=== PATIENT | female | born 1975 | race Caucasian/White ===

== ENCOUNTER 2016-08-28 14:51 | Emergency (ER) | payer OTHER ==
[~2016-08-28 14:51] MED LIST: /ESOM40CA OR; ADVAIR INH; ALBUTEROL LIQ INH; ASPI81TA83 OR; BABY81CH OR; ESTR625TA OR; GEMF600T OR; KLON1TAB OR; LOPI600T OR; NAPR500T OR; PAXI20TA OR; PAXI40TA OR; SING10TA31 OR; TRAZ100T OR; TRAZ50TA OR; VENTAER IN; ZOCO40TA OR; ZONISAMIDE PO
--- NOTE | 2016-08-28 17:05 | EDDOCDS ---
Nurse's Notes [facility] Name: Coleen Hirsch Age: 40 yrs Sex: Female : 1975 Arrival Date: 08/28/2016 Time: 14:51 Bed I6 / 28 Private MD: NO PRIMARY PHYSICIAN, . Diagnosis: Pain in left foot Presentation: 08/28 14:54 Presenting complaint: Patient states: Left foot injury a year ago, worse over the past mlb1 few days. Adult Sepsis Screening: The patient does not have new or worsening altered mentation. Patient's respiratory rate is less than 22. Systolic blood pressure is greater than 100. Patient has a qSOFA score of 0- Negative Sepsis Screen. Suicide/Homicide risk assessment- the patient denies having any suicidal and/or homicidal ideations and does not present with any other emotional, behavioral or mental health complaints. Status: Patient is not a home restoration service supervisor or dependent. Transition of care: patient was not received from another setting of care. 14:54 Acuity: ROLANDO Level 4 mlb1 14:54 Method Of Arrival: Walkin/Carried/Asstd mlb1 Triage Assessment: 14:57 General: Appears in no apparent distress, Behavior is appropriate for age, cooperative. mlb1 Pain: Location: left foot Pain currently is 8 out of 10 on a pain scale. HIV screening NA for this visit Offered previously. 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 albuterol sulfate 90 mcg/actuation Inhl HFAA 1 puff every 4 hours as needed 2. aspirin 81 mg Oral chew 1 tab once daily 3. Effexor 75 mg Oral tab 1 tab daily 4. loratadine 10 mg Oral tab 1 tab once daily 5. omeprazole 40 mg Oral cpDR 1 cap once daily 6. simvastatin 40 mg Oral tab 1 tab nightly 7. zonisamide 100 mg oral cap 1 cap nightly 8. Advair HFA 230-21 mcg/actuation inhalation HFAA 2 puffs 2 times per day 9. Tylenol 325 mg Oral tab 2 tabs every 4 hours as needed (Last dose: 08/27/2016) - PMHx: Asthma; Depression; GERD; Hypercholesterolemia; Seasonal Allergies; Sleep Apnea w/ CPAP; - PSHx: carpal tunnel bilatral; Tubal ligation; Hysterectomy; Cholecystectomy; - Social history: Smoking status: Patient uses tobacco products, light tobacco smoker. No barriers to communication noted, The patient speaks fluent Kazakh, Speaks appropriately for age. - Family history: Not pertinent. - : The pt / caregiver states he / she is not on anticoagulants. Home medication list is obtained from the patient. - Exposure Risk Screening:: None identified. Screenin:40 Screening information is obtained from the patient. Fall risk: At risk due to prior jmb history of falls. Assistance ADL's: requires no assistance with activities of daily living. Abuse/DV Screen: The patient / caregiver reports he/she is: not in a situation that causes fear, pain or injury. Nutritional screening: No deficits noted. home support is adequate. 17:03 Advance Directives: Currently, there is no health care proxy. There is no active DNR jmb order. There is no living will. There is no Power of Vulcan Crewmember. Assessment: 15:40 General: Appears in no apparent distress, Behavior is appropriate for age, cooperative. jmb Pain: Location: left foot Pain currently is 9 out of 10 on a pain scale. Neurological: Level of Consciousness is awake, alert, obeys commands, Oriented to person, place, time, Director Of Housing are equal bilaterally Speech is normal, Facial symmetry appears normal, Facial symmetry: tongue is midline. Cardiovascular: Capillary refill < 3 seconds Heart tones S1 S2 present Pulses are all present. Rhythm is regular. Respiratory: Airway is patent Respiratory effort is even, unlabored, Respiratory pattern is regular, symmetrical, Breath sounds are diminished bilaterally. GI: Abdomen is obese, Bowel sounds present X 4 quads. Abd is soft and non tender X 4 quads. Derm: Skin is pink, warm & dry. Musculoskeletal: Range of motion intact in all extremities. 16:22 General: Appears in no apparent distress, Behavior is appropriate for age, cooperative. jmb Neurological: Level of Consciousness is awake, alert, obeys commands, Oriented to person, place, time, Director Of Housing are. Respiratory: Airway is patent Respiratory effort is even, unlabored, Respiratory pattern is regular, symmetrical. 17:03 General: Patient instructed on discharge instructions. Patient asked if there were any b questions regarding discharge, patient stated no. Patient signed discharge instructions. Patient discharged in stable condition. . Vital Signs: 14:53 BP 146 / 76; Pulse 114; Resp 18; Temp 97.6(O); Pulse Ox 97% on R/A; Weight 135.17 kg dem1 (R); Height 5 ft. 3 in. (160.02 cm); Pain 8/10; 16:51 BP 137 / 75; Pulse 91; Resp 20; Temp 98.1(TE); Pulse Ox 97% on R/A; Pain 9/10; jml1 14:53 Body Mass Index 52.79 (135.17 kg, 160.02 cm) [facility] Vitals: 14:53 Log In Time: August 28, 2016 at 14:50. [facility] ED Course: 14:52 Patient visited by Enrique Lanier. dem1 14:52 Patient moved to Waiting [facility] 14:53 NO PRIMARY PHYSICIAN, . is Private Physician. dem1 14:53 Patient moved to Pre RCE dem1 14:54 Patient visited by Chema Corbett RN. mlb1 14:55 Triage Initiated mlb1 14:57 Patient visited by Chema Corbett RN. mlb1 14:57 Patient moved to Triage 2 mlb1 15:09 Maximilian Felix PA-C is PHCP. ar2 15:10 Dorys Burgos MD is Attending Physician. ar2 15:10 Patient visited by Maximilian Felix PA-C. ar2 15:16 Patient moved to I6 ck1 15:40 The patient / caregiver is instructed regarding the plan of care and ED course. jmb 15:41 Patient visited by Leonardo Diaz RN. jmb 16:15 [facility] Payment Agreement was scanned into [employer] and attached to record. ks16 16:23 Patient visited by Leonardo Diaz RN. jmb 16:32 Akshat Zabala DPM is Referral Physician. ar2 16:52 Patient visited by Ty Hernandez. jml1 17:03 No IV's were initiated during this patient's visit. No procedures done that require jmb assistance. Order Results: There are currently no results for this order. Outcome: 16:32 Discharge ordered by Provider. ar2 17:03 Discharge Assessment: Patient awake, alert and oriented x 3. No cognitive and/or jmb functional deficits noted. Patient verbalized understanding of disposition instructions. Patient awake and alert. obeys commands, Oriented to person, place and time. Patient verbalized understanding of disposition instructions. Patient has no functional deficits. patient administered narcotics - no. The following High Risk Discharge criteria are identified: None. Discharged to home ambulatory. Condition: stable Condition: improved. Discharge instructions given to patient, Instructed on discharge instructions, follow up and referral plans. medication usage, Demonstrated understanding of instructions, medications, Pt was receptive of discharge instructions/ teaching. Prescriptions given X 1. No special radiology studies were completed. Property sent home with patient. 17:04 Patient left the ED. xander Signatures: Chema Corbett RN RN mlb1 Concepcion MascorroRN RN ck1 Maximilian Felix, PAKattyC PA-C mandy2 Ty Hernandezl1 Enrique Lanier Joshua,[place] RN luis enriqueb Elizabeth Puri, Reg Reg ks16 ELIZABET
--- NOTE | 2016-08-28 17:05 | EDDOCDS ---
Physician Documentation [facility] Name: Coleen Hirsch Age: 40 yrs Sex: Female : 1975 Arrival Date: 08/28/2016 Time: 14:51 Bed I6 / 28 Private MD: NO PRIMARY PHYSICIAN, . Disposition: 08/28/16 16:32 Discharged to Home/Self Care. Impression: Pain in left foot. - Condition is Stable. - Discharge Instructions: Heel Spur, Musculoskeletal Pain. - Prescriptions for Tramadol 50 mg Oral Tablet - take 1 tablet by ORAL route 4 times per day As needed MDD: 4 tabs; 20 tablet. - Medication Reconciliation, Local Pharmacy Hours form. - Follow up: Akshat Zabala DPM; When: Call to arrange an appointment; Reason: Further diagnostic work-up, Recheck today's complaints. - Problem is new. - Symptoms are unchanged. Historical: - Allergies: Codeine Sulfate (Upset stomach); NSAIDS (stomach problems); - Home Meds: 1. albuterol sulfate 90 mcg/actuation Inhl HFAA 1 puff every 4 hours as needed 2. aspirin 81 mg Oral chew 1 tab once daily 3. Effexor 75 mg Oral tab 1 tab daily 4. loratadine 10 mg Oral tab 1 tab once daily 5. omeprazole 40 mg Oral cpDR 1 cap once daily 6. simvastatin 40 mg Oral tab 1 tab nightly 7. zonisamide 100 mg oral cap 1 cap nightly 8. Advair HFA 230-21 mcg/actuation inhalation HFAA 2 puffs 2 times per day 9. Tylenol 325 mg Oral tab 2 tabs every 4 hours as needed (Last dose: 08/27/2016) - PMHx: Asthma; Depression; GERD; Hypercholesterolemia; Seasonal Allergies; Sleep Apnea w/ CPAP; - PSHx: carpal tunnel bilatral; Tubal ligation; Hysterectomy; Cholecystectomy; - Social history: Smoking status: Patient uses tobacco products, light tobacco smoker. No barriers to communication noted, The patient speaks fluent Mongolian, Speaks appropriately for age. - Family history: Not pertinent. - : The pt / caregiver states he / she is not on anticoagulants. Home medication list is obtained from the patient. - Exposure Risk Screening:: None identified. 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 3 in. (160.02 cm); Pain 8/10; 16:51 BP 137 / 75; Pulse 91; Resp 20; Temp 98.1(TE); Pulse Ox 97% on R/A; Pain 9/10; jml1 14:53 Body Mass Index 52.79 (135.17 kg, 160.02 cm) dem1 MDM: 15:15 Foot, Complete Ordered. EDMS 15:56 Financial registration complete. [email or web address] 16:15 [facility] Payment Agreement was scanned into [employer] and attached to record. [email or web address] Signatures: Dispatcher [employer] EDChmea Huang RN RN mlb1 Maximilian Felix, PATammy PATammy ar2 Leonardo Diaz RN RN Elizabeth Casiano, Reg Reg ks16 The chart was reviewed and I authenticate all verbal orders and agree with the evaluation and treatment provided.Attachments: 16:15 [facility] Payment Agreement [email or web address] MTDD
--- NOTE | 2016-08-29 09:27 | REP ---
LEFT FOOT SERIES COMPLETE: 08/28/2016. Clinical history: Foot pain fifth metatarsal, old trauma this region. Four views are provided. There are plantar and Achilles insertion spurs in the posterior calcaneus. Subtalar joints are intact. Talonavicular and calcaneocuboid joints unremarkable. The tarsal articulations and bones were intact and the metatarsals without acute finding. I see no significant degenerative change at the MTP or IP joints. No destructive lesion or fracture of the phalanges. There is no erosion or periosteal reaction and with specific attention to the fifth metatarsal no acute finding. Impression: 1. There are heel spurs and no evidence of fracture, avulsion, erosion, subluxation or other acute bony finding. No healed or remodeled fracture visible, destructive lesion or radiopaque foreign body. Signed by Cesar Villa MD 08/29/2016 06:54 P
--- NOTE | 2016-08-30 18:05 | EDDOCDS ---
Physician Documentation [facility] Name: Coleen Hirsch Age: 40 yrs Sex: Female : 1975 Arrival Date: 08/28/2016 Time: 14:51 Bed I6 / 28 Private MD: NO PRIMARY PHYSICIAN, . Disposition: 08/28/16 16:32 Discharged to Home/Self Care. Impression: Pain in left foot. - Condition is Stable. - Discharge Instructions: Heel Spur, Musculoskeletal Pain. - Prescriptions for Tramadol 50 mg Oral Tablet - take 1 tablet by ORAL route 4 times per day As needed MDD: 4 tabs; 20 tablet. - Medication Reconciliation, Local Pharmacy Hours form. - Follow up: Akshat Zabala DPM; When: Call to arrange an appointment; Reason: Further diagnostic work-up, Recheck today's complaints. - Problem is new. - Symptoms are unchanged. Historical: - Allergies: Codeine Sulfate (Upset stomach); NSAIDS (stomach problems); - Home Meds: 1. albuterol sulfate 90 mcg/actuation Inhl HFAA 1 puff every 4 hours as needed 2. aspirin 81 mg Oral chew 1 tab once daily 3. Effexor 75 mg Oral tab 1 tab daily 4. loratadine 10 mg Oral tab 1 tab once daily 5. omeprazole 40 mg Oral cpDR 1 cap once daily 6. simvastatin 40 mg Oral tab 1 tab nightly 7. zonisamide 100 mg oral cap 1 cap nightly 8. Advair HFA 230-21 mcg/actuation inhalation HFAA 2 puffs 2 times per day 9. Tylenol 325 mg Oral tab 2 tabs every 4 hours as needed (Last dose: 08/27/2016) - PMHx: Asthma; Depression; GERD; Hypercholesterolemia; Seasonal Allergies; Sleep Apnea w/ CPAP; - PSHx: carpal tunnel bilatral; Tubal ligation; Hysterectomy; Cholecystectomy; - Social history: Smoking status: Patient uses tobacco products, light tobacco smoker. No barriers to communication noted, The patient speaks fluent Mohawk, Speaks appropriately for age. - Family history: Not pertinent. - : The pt / caregiver states he / she is not on anticoagulants. Home medication list is obtained from the patient. - Exposure Risk Screening:: None identified. 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 3 in. (160.02 cm); Pain 8/10; 16:51 BP 137 / 75; Pulse 91; Resp 20; Temp 98.1(TE); Pulse Ox 97% on R/A; Pain 9/10; jml1 14:53 Body Mass Index 52.79 (135.17 kg, 160.02 cm) dem1 MDM: 15:15 Foot, Complete Ordered. EDMS 15:56 Financial registration complete. [email or web address] 16:15 [facility] [place] Agreement was scanned into [employer] and attached to record. ks16 21:42 T-Sheet-- Draft Copy was scanned into [employer] and attached to record. klr Signatures: Dispatcher [employer] EDPA Chema Corbett RN RN mlb1 Maximilian Felix, PAKattyC PA-Elsy ar2 Leonardo Diaz RN RN jmElizabeth Tovar, Reg Reg ks16 Marlene Day klr The chart was reviewed and I authenticate all verbal orders and agree with the evaluation and treatment provided.Attachments: 16:15 [facility] [place] Agreement [email or web address] 21:42 T-Sheet-- Draft Copy klr Chart Complete MTDD
--- NOTE | 2016-08-30 18:05 | EDDOCDS ---
Nurse's Notes [facility] Name: Coleen Hirsch Age: 40 yrs Sex: Female : 1975 Arrival Date: 08/28/2016 Time: 14:51 Bed I6 / 28 Private MD: NO PRIMARY PHYSICIAN, . Diagnosis: Pain in left foot Presentation: 08/28 14:54 Presenting complaint: Patient states: Left foot injury a year ago, worse over the past mlb1 few days. Adult Sepsis Screening: The patient does not have new or worsening altered mentation. Patient's respiratory rate is less than 22. Systolic blood pressure is greater than 100. Patient has a qSOFA score of 0- Negative Sepsis Screen. Suicide/Homicide risk assessment- the patient denies having any suicidal and/or homicidal ideations and does not present with any other emotional, behavioral or mental health complaints. Status: Patient is not a caseworker protective services or dependent. Transition of care: patient was not received from another setting of care. 14:54 Acuity: ROLANDO Level 4 mlb1 14:54 Method Of Arrival: Walkin/Carried/Asstd mlb1 Triage Assessment: 14:57 General: Appears in no apparent distress, Behavior is appropriate for age, cooperative. mlb1 Pain: Location: left foot Pain currently is 8 out of 10 on a pain scale. HIV screening NA for this visit Offered previously. 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 albuterol sulfate 90 mcg/actuation Inhl HFAA 1 puff every 4 hours as needed 2. aspirin 81 mg Oral chew 1 tab once daily 3. Effexor 75 mg Oral tab 1 tab daily 4. loratadine 10 mg Oral tab 1 tab once daily 5. omeprazole 40 mg Oral cpDR 1 cap once daily 6. simvastatin 40 mg Oral tab 1 tab nightly 7. zonisamide 100 mg oral cap 1 cap nightly 8. Advair HFA 230-21 mcg/actuation inhalation HFAA 2 puffs 2 times per day 9. Tylenol 325 mg Oral tab 2 tabs every 4 hours as needed (Last dose: 08/27/2016) - PMHx: Asthma; Depression; GERD; Hypercholesterolemia; Seasonal Allergies; Sleep Apnea w/ CPAP; - PSHx: carpal tunnel bilatral; Tubal ligation; Hysterectomy; Cholecystectomy; - Social history: Smoking status: Patient uses tobacco products, light tobacco smoker. No barriers to communication noted, The patient speaks fluent Malay, Speaks appropriately for age. - Family history: Not pertinent. - : The pt / caregiver states he / she is not on anticoagulants. Home medication list is obtained from the patient. - Exposure Risk Screening:: None identified. Screenin:40 Screening information is obtained from the patient. Fall risk: At risk due to prior jmb history of falls. Assistance ADL's: requires no assistance with activities of daily living. Abuse/DV Screen: The patient / caregiver reports he/she is: not in a situation that causes fear, pain or injury. Nutritional screening: No deficits noted. home support is adequate. 17:03 Advance Directives: Currently, there is no health care proxy. There is no active DNR jmb order. There is no living will. There is no Power of Scientific Investigator. Assessment: 15:40 General: Appears in no apparent distress, Behavior is appropriate for age, cooperative. jmb Pain: Location: left foot Pain currently is 9 out of 10 on a pain scale. Neurological: Level of Consciousness is awake, alert, obeys commands, Oriented to person, place, time, Automatic Cigar Wrapper Tender are equal bilaterally Speech is normal, Facial symmetry appears normal, Facial symmetry: tongue is midline. Cardiovascular: Capillary refill < 3 seconds Heart tones S1 S2 present Pulses are all present. Rhythm is regular. Respiratory: Airway is patent Respiratory effort is even, unlabored, Respiratory pattern is regular, symmetrical, Breath sounds are diminished bilaterally. GI: Abdomen is obese, Bowel sounds present X 4 quads. Abd is soft and non tender X 4 quads. Derm: Skin is pink, warm & dry. Musculoskeletal: Range of motion intact in all extremities. 16:22 General: Appears in no apparent distress, Behavior is appropriate for age, cooperative. jmb Neurological: Level of Consciousness is awake, alert, obeys commands, Oriented to person, place, time, Automatic Cigar Wrapper Tender are. Respiratory: Airway is patent Respiratory effort is even, unlabored, Respiratory pattern is regular, symmetrical. 17:03 General: Patient instructed on discharge instructions. Patient asked if there were any b questions regarding discharge, patient stated no. Patient signed discharge instructions. Patient discharged in stable condition. . Vital Signs: 14:53 BP 146 / 76; Pulse 114; Resp 18; Temp 97.6(O); Pulse Ox 97% on R/A; Weight 135.17 kg dem1 (R); Height 5 ft. 3 in. (160.02 cm); Pain 8/10; 16:51 BP 137 / 75; Pulse 91; Resp 20; Temp 98.1(TE); Pulse Ox 97% on R/A; Pain 9/10; jml1 14:53 Body Mass Index 52.79 (135.17 kg, 160.02 cm) [facility] Vitals: 14:53 Log In Time: August 28, 2016 at 14:50. [facility] ED Course: 14:52 Patient visited by Enrique Lanier. [facility] 14:52 Patient moved to Waiting [facility] 14:53 NO PRIMARY PHYSICIAN, . is Private Physician. [facility] 14:53 Patient moved to Pre RCE dem1 14:54 Patient visited by Chema Corbett RN. mlb1 14:55 Triage Initiated mlb1 14:57 Patient visited by Chema Corbett RN. mlb1 14:57 Patient moved to Triage 2 mlb1 15:09 Maximilian Felix PA-C is PHCP. ar2 15:10 Dorys Burgos MD is Attending Physician. ar2 15:10 Patient visited by Maximilian Felix PA-C. ar2 15:16 Patient moved to I6 ck1 15:40 The patient / caregiver is instructed regarding the plan of care and ED course. jmb 15:41 Patient visited by Leonardo Diaz RN. jmb 16:15 [facility] Payment Agreement was scanned into [employer] and attached to record. ks16 16:23 Patient visited by Leonardo Diaz RN. jmb 16:32 Akshat Zabala DPM is Referral Physician. ar2 16:52 Patient visited by Ty Hernandez. jml1 17:03 No IV's were initiated during this patient's visit. No procedures done that require jmb assistance. 21:42 T-Sheet-- Draft Copy was scanned into [employer] and attached to record. klr 08/29 09:40 Foot, Complete Returned. EDMS Order Results: Radiology Order: Foot, Complete Test: Foot, Complete REASON FOR EXAMINATION: old trauma, new pain, 5th MT; LEFT FOOT SERIES COMPLETE: 08/28/2016.; ; Clinical history: Foot pain fifth metatarsal, old trauma this region.; ; Four views are provided. There are plantar and Achilles insertion spurs in the; posterior calcaneus. Subtalar joints are intact. Talonavicular and; calcaneocuboid joints unremarkable. The tarsal articulations and bones were; intact and the metatarsals without acute finding. I see no significant; degenerative change at the MTP or IP joints. No destructive lesion or fracture; of the phalanges. There is no erosion or periosteal reaction and with specific; attention to the fifth metatarsal no acute finding.; ; Impression:; ; 1. There are heel spurs and no evidence of fracture, avulsion, erosion,; subluxation or other acute bony finding. No healed or remodeled fracture; visible, destructive lesion or radiopaque foreign body.; ; ; Signed by; Cesar Villa MD 08/29/2016 06:54 P; Outcome: 08/28 16:32 Discharge ordered by Provider. ar2 17:03 Discharge Assessment: Patient awake, alert and oriented x 3. No cognitive and/or jmb functional deficits noted. Patient verbalized understanding of disposition instructions. Patient awake and alert. obeys commands, Oriented to person, place and time. Patient verbalized understanding of disposition instructions. Patient has no functional deficits. patient administered narcotics - no. The following High Risk Discharge criteria are identified: None. Discharged to home ambulatory. Condition: stable Condition: improved. Discharge instructions given to patient, Instructed on discharge instructions, follow up and referral plans. medication usage, Demonstrated understanding of instructions, medications, Pt was receptive of discharge instructions/ teaching. Prescriptions given X 1. No special radiology studies were completed. Property sent home with patient. 17:04 Patient left the ED. xander Signatures: Dispatcher [employer] EDFL Chema Corbett RN RN mlb1 Concepcion Mascorro RN RN ck1 Maximilian Felix, PAKattyC PA-C ar2 Ty Hernandezl1 Enrique Lanier Joshua, RN RN Elizabeth Casiano, Reg Reg ks16 Marlene Day Chart Complete MTDD
--- NOTE | 2016-08-30 18:05 | EDDOCDS ---
Physician Documentation [facility] Name: Coleen Hirsch Age: 40 yrs Sex: Female : 1975 Arrival Date: 08/28/2016 Time: 14:51 Bed I6 / 28 Private MD: NO PRIMARY PHYSICIAN, . Disposition: 08/28/16 16:32 Discharged to Home/Self Care. Impression: Pain in left foot. - Condition is Stable. - Discharge Instructions: Heel Spur, Musculoskeletal Pain. - Prescriptions for Tramadol 50 mg Oral Tablet - take 1 tablet by ORAL route 4 times per day As needed MDD: 4 tabs; 20 tablet. - Medication Reconciliation, Local Pharmacy Hours form. - Follow up: Akshat Zabala DPM; When: Call to arrange an appointment; Reason: Further diagnostic work-up, Recheck today's complaints. - Problem is new. - Symptoms are unchanged. Historical: - Allergies: Codeine Sulfate (Upset stomach); NSAIDS (stomach problems); - Home Meds: 1. albuterol sulfate 90 mcg/actuation Inhl HFAA 1 puff every 4 hours as needed 2. aspirin 81 mg Oral chew 1 tab once daily 3. Effexor 75 mg Oral tab 1 tab daily 4. loratadine 10 mg Oral tab 1 tab once daily 5. omeprazole 40 mg Oral cpDR 1 cap once daily 6. simvastatin 40 mg Oral tab 1 tab nightly 7. zonisamide 100 mg oral cap 1 cap nightly 8. Advair HFA 230-21 mcg/actuation inhalation HFAA 2 puffs 2 times per day 9. Tylenol 325 mg Oral tab 2 tabs every 4 hours as needed (Last dose: 08/27/2016) - PMHx: Asthma; Depression; GERD; Hypercholesterolemia; Seasonal Allergies; Sleep Apnea w/ CPAP; - PSHx: carpal tunnel bilatral; Tubal ligation; Hysterectomy; Cholecystectomy; - Social history: Smoking status: Patient uses tobacco products, light tobacco smoker. No barriers to communication noted, The patient speaks fluent Upper Sorbian, Speaks appropriately for age. - Family history: Not pertinent. - : The pt / caregiver states he / she is not on anticoagulants. Home medication list is obtained from the patient. - Exposure Risk Screening:: None identified. TIRE DUSTER: 08/28 14:57 LMP N/A - Hysterectomy mlb1 Vital Signs: 14:53 BP 146 / 76; Pulse 114; Resp 18; Temp 97.6(O); Pulse Ox 97% on R/A; Weight 135.17 kg / dem1 298 lbs (R); Height 5 ft. 3 in. (160.02 cm); Pain 8/10; 16:51 BP 137 / 75; Pulse 91; Resp 20; Temp 98.1(TE); Pulse Ox 97% on R/A; Pain 9/10; jml1 14:53 Body Mass Index 52.79 (135.17 kg, 160.02 cm) dem1 MDM: 15:15 Foot, Complete Ordered. EDMS 15:56 Financial registration complete. [email or web address] 16:15 [facility] Payment Agreement was scanned into [employer] and attached to record. [email or web address] 21:42 T-Sheet-- Draft Copy was scanned into [employer] and attached to record. klr Signatures: Dispatcher [employer] EDMI Chema Corbett RN RN mlb1 Maximilian Felix, PAKattyC PA-Elsy ar2 Leonardo Diaz RN RN jmElizabeth Tovar, Reg Reg ks16 Marlene Day klr The chart was reviewed and I authenticate all verbal orders and agree with the evaluation and treatment provided.Attachments: 16:15 [facility] Payment Agreement [email or web address] 21:42 T-Sheet-- Draft Copy klr Chart Complete MTDD
== END 2016-08-28 17:04 | disposition home or self-care (01) ==
LOC: M ED 14:51
DX: M79.672 Pain in left foot (principal); J45.909 Unspecified asthma, uncomplicated; F32.9 Major depressive disorder, single episode, unspecified; K21.9 Gastro-esophageal reflux disease without esophagitis; E78.00 Pure hypercholesterolemia, unspecified; G47.30 Sleep apnea, unspecified; F17.210 Nicotine dependence, cigarettes, uncomplicated; Z79.899 Other long term (current) drug therapy; Z79.82 Long term (current) use of aspirin; Z79.51 Long term (current) use of inhaled steroids

== ENCOUNTER 2016-09-15 03:02 | Emergency (ER) | payer OTHER ==
[~2016-09-15] VITALS: Ht 160 cm; Wt 131.5 kg
[2016-09-15] MEDS ORDERED: PRIL20CA9 PO (03:24)
[2016-09-15] MEDS ORDERED: RISP-4 PO (03:24)
[2016-09-15] MEDS ORDERED: ADVA230A INH (03:24)
[2016-09-15] MEDS ORDERED: ZONI100C2 PO (03:24)
[2016-09-15] MEDS ORDERED: CLAR10CA3 PO (03:24)
[2016-09-15] MEDS ORDERED: EFFE75CA75 PO (03:24)
[2016-09-15] MEDS ORDERED: KETOROLAC 30 MG/ML VIAL (J1885) IV ONE (04:30)
[2016-09-15] MEDS ORDERED: OSEL75CA2 PO (06:27)
[2016-09-15] MEDS ORDERED: OSELTAMIVIR PHOSPHATE 75 MG CAP (TAMIFLU) PO ONE (06:30)
[2016-09-15 06:37] VITALS: BP 97/63
== END 2016-09-15 06:41 | disposition home or self-care (01) ==
LOC: M ED 04:10
DX: J11.1 Influenza due to unidentified influenza virus with other respiratory manifestations (principal); J45.909 Unspecified asthma, uncomplicated; F17.200 Nicotine dependence, unspecified, uncomplicated; Z79.899 Other long term (current) drug therapy; Z79.82 Long term (current) use of aspirin; Z88.5 Allergy status to narcotic agent; Z88.8 Allergy status to other drugs, medicaments and biological substances

== ENCOUNTER → 2016-10-03 | Emergency (ER) | payer OTHER ==
[~2016-10-03] VITALS: Ht 160 cm; Wt 131.5 kg
[~2016-10-03] MED LIST changes: +ADVA230A INH; +ASPI1TAB PO; +CLAR10CA3 PO; +COMBAER6 INH; +EFFE75CA75 PO; +OSEL75CA2 PO; +PRED20TA PO; +PRIL20CA9 PO; +PROA1AER INH; +RISP-4 PO; +SIMV40TA2 PO; +ZONI100C2 PO
[2016-10-03 21:16] VITALS: BP 140/70
== END | disposition home or self-care (01) ==
LOC: M ED 21:16
DX: S09.90XA Unspecified injury of head, initial encounter (principal); Z53.21 Procedure and treatment not carried out due to patient leaving prior to being seen by health care provider

== ENCOUNTER 2016-11-03 13:16 | Emergency (ER) | payer OTHER ==
[~2016-11-03] VITALS: Ht 160 cm; Wt 135.6 kg
[~2016-11-03 13:16] MED LIST changes: -ASPI1TAB PO; -COMBAER6 INH; -PRED20TA PO; -PROA1AER INH; -SIMV40TA2 PO
[2016-11-03] MEDS ORDERED: PROA1AER INH (13:30)
[2016-11-03] MEDS ORDERED: SIMV40TA2 PO (13:30)
[2016-11-03] MEDS ORDERED: ASPI1TAB PO (13:30)
[2016-11-03 14:06] LABS: BASO % 0.4 % (0.0-1.0); EOS # 0.1 K/mm3 (0.0-0.50); LARGE UNSTAINED CELL # 0.2 K/mm3 (0.0-0.4); LARGE UNSTAINED CELL % 1.6 % (0.0-4.0); LYMPH # 3.2 K/mm3 (1.5-4.5); LYMPH % 28.1 % (24.0-44.0); MEAN CORPUSCULAR HEMOGLOBIN 30.3 pg (27.0-33.0); MEAN CORPUSCULAR HGB CONC 33.1 g/dl (32.0-36.5); MEAN CORPUSCULAR VOLUME 91.8 fl (80.0-96.0); MONO # 0.4 K/mm3 (0.0-0.8); MONO % 3.6 % (0.0-5.0); NEUTROPHILS # 7.4 K/mm3 (1.8-7.7); NEUTROPHILS % 65.3 % (36.0-66.0); PLATELET COUNT, AUTOMATED 303 k/mm3 (150-450); RED CELL DISTRIBUTION WIDTH 12.5 % (11.5-14.5); WHITE BLOOD COUNT 11.2 K/mm3 (4.0-10.0)
[2016-11-03] MEDS ORDERED: fentaNYL 100 MCG/2 ML INJECTION (J3010) IV ONE (14:15)
[2016-11-03] MEDS ORDERED: IPRATROPIUM 0.5MG/ALBUTEROL 2.5MG INH SOL UD 3ML (DUONEB)(J7620) NEB ONE (14:15)
[2016-11-03] MEDS ORDERED: methylPREDNISolone INJ 125 MG/2 ML VIAL (J2930) IV ONE (14:15)
[2016-11-03] MEDS ORDERED: ALBUTEROL SULFATE 2.5 MG/0.5 ML INH NEB SOLN INH ONE (14:15)
[2016-11-03 14:27] LABS: ANION GAP 6 MEQ/L (8-16); BLOOD UREA NITROGEN 15 MG/DL (7-18); CALCIUM LEVEL 8.9 MG/DL (8.5-10.1); CARBON DIOXIDE LEVEL 31 MEQ/L (21-32); CHLORIDE LEVEL 104 MEQ/L (98-107); CREATININE FOR GFR 0.63 MG/DL (0.55-1.02); GLOMERULAR FILTRATION RATE > 60.0 (>58); GLUCOSE, FASTING 86 MG/DL (70-105); POTASSIUM SERUM 3.7 MEQ/L (3.5-5.1); SODIUM LEVEL 141 MEQ/L (136-145)
--- NOTE | 2016-11-03 14:41 | REP ---
Chest x-ray: Two views. History: Chest pain and shortness of breath . Comparison study: December 04, 2010 . Findings: The lungs are well inflated and free of infiltrate. The pleural angles are sharp. The heart size is normal. Pulmonary vasculature is not increased. No significant bony abnormality is seen. EKG monitoring electrodes overlie the chest. Impression: Negative chest x-ray. Signed by Luis Enrique Jorgensen MD 11/03/2016 02:32 P
[2016-11-03] MEDS ORDERED: KETOROLAC 30 MG/ML VIAL (J1885) IV ONE (15:30)
[2016-11-03] MEDS ORDERED: COMBAER6 INH (16:24)
[2016-11-03] MEDS ORDERED: PRED20TA PO (16:24)
[2016-11-03 16:43] VITALS: BP 130/78
--- NOTE | 2016-11-04 08:38 | ECGEPIP ---
Stationary ECG Study [facility] - ED Test Date: 2016-11-03 Pat Name: GINGER SHAHID Department: Room: - Gender: F Aquatics Director: mandy : 1975 Requested By: Gail Cates Order Number: [id number] Reading MD: Gail Cates Measurements Intervals Belk Rate: 73 P: 27 MD: 134 QRS: 39 QRSD: 114 T: 39 QT: 402 QTc: 444 Interpretive Statements SINUS RHYTHM INCOMPLETE RIGHT BUNDLE BRANCH BLOCK NO PRIOR FOR COMPARISON Electronically Signed On 11-04-2016 8:37:49 EDT by Gail Cates
== END 2016-11-03 16:44 | disposition home or self-care (01) ==
LOC: M ED 14:44
DX: J45.909 Unspecified asthma, uncomplicated (principal)

== ENCOUNTER → 2016-11-11 | Outpatient (REF) | payer OTHER ==
[~2016-11-11] MED LIST changes: +ASPI1TAB PO; +COMBAER6 INH; +PRED20TA PO; +PROA1AER INH; +SIMV40TA2 PO
== END ==
LOC: M SMT 13:23
PROVIDERS: ATTEND Urology
DX: R31.29 Other microscopic hematuria (principal); R30.0 Dysuria

== ENCOUNTER → 2016-11-17 | Outpatient (REF) | payer OTHER | LOC: M SMT 16:53 | PROVIDERS: ATTEND Urology | DX: N39.0 Urinary tract infection, site not specified (principal) ==

== ENCOUNTER → 2016-11-25 | Outpatient (CLI) | payer OTHER ==
--- NOTE | 2016-12-07 00:12 | ECWPNPC ---
PATIENT NAME: GINGER SHAHID : 1975 GENDER: FEMALE VISIT DATE: 11/25/2016 DISCHARGE DATE: 11/25/16 1218 VISIT LOCKED DATE TIME: PHYSICIAN: FABRICE DISLA RESOURCE: FABRICE DISLA REASON FOR APPOINTMENT 1. HIP PAIN HISTORY OF PRESENT ILLNESS FALL RISK SCREENING: SCREENING :NO FALLS IN THE PAST YEAR PAIN SCREENING: PATIENT HAS A COMPLAINT OF ACUTE OR CHRONIC PAIN :YES TODAY'S VISIT: NOTES: REFERRED BY DR CURTIS COLEMAN FOR LOW BACK PAIN. . RATES PAIN LEVEL TODAY 7/10. NOTES PAIN IS CENTERED IN LOWBACK AND RIGHT HIP AND THIGH. STATES LOW BACK SWELLS AND THE PAIN IS CENTERED ALONG SPINE. HAS BEEN DEALING WITH THE PROBLEM FOR SEVERAL YEAR. . HAS BEEN THROUGH PT (LAST 2011) FOR NECK. AT [facility]. DECLINES ANY FURTHER PT THIS MAKES HER HURT MORE. NOTES HIP PAIN IS NEW WITH SUDDEN ONSET IN OCTOBER 27, 2016. NO RECENT TRAUMAS BUT HAD NUMEROUS FALLS DOWN STAIRS CHILD. HAS BEEN TAKING LARGE DOSES OF TYLENOL, USING HEAT. STATES DOES NOT WANT NEEDLES OR INJECTION. . CURRENT MEDICATIONS TAKING ALBUTEROL SULFATE (2.5 MG/3ML) 0.083% NEBULIZATION SOLUTION 3 ML INHALATION EVERY 4 HOURS NEEDED TAKING RISPERIDONE 1 MG TABLET 1 TABLET ORALLY ONCE A DAY TAKING EFFEXOR XR 75 MG CAPSULE EXTENDED RELEASE 24 HOUR 1 CAPSULE WITH FOOD ORALLY ONCE A DAY TAKING OMEPRAZOLE 40 MG CAPSULE DELAYED RELEASE 1 CAPSULE ORALLY ONCE A DAY TAKING VENTOLIN HFA 90 MCG/ACT AEROSOL SOLUTION 2 PUFFS NEEDED INHALATION EVERY 4 HRS PRN TAKING SIMVASTATIN 40 MG TABLET 1 TABLET IN THE EVENING ORALLY ONCE A DAY TAKING ASPIRIN EC 81 MG TABLET DELAYED RELEASE 1 TABLET ORALLY ONCE A DAY TAKING ZONISAMIDE 100 MG CAPSULE 3 CAPSULE ORALLY AT BEDTIME FOR HEADACHES TAKING ADVAIR HFA 45-21 MCG/ACT AEROSOL 2 PUFFS INHALATION TWICE A DAY TAKING LORATADINE 10 MG TABLET 1 TABLET ORALLY ONCE A DAY TAKING OXYBUTYNIN CHLORIDE ER 10 MG TABLET EXTENDED RELEASE 24 HOUR 1 TABLET ORALLY ONCE A DAY NOT-TAKING ADVAIR DISKUS .. AEROSOL POWDER BREATH ACTIVATED 2 PUFF INHALATION PRN, NOTES: RECOMMEND PT START USING IT BID NOT-TAKING ASA 81 MG TABLET 1 TAB ORALLY DAILY NOT-TAKING CPAP MASK ICD: 327.23 __ __ EXTERNAL NIGHTLY, NOTES: MASK LOST FOR A YEAR NOW, IS PLANNING ON BUYING A NEW ONE MEDICATION LIST REVIEWED AND RECONCILED WITH THE PATIENT PAST MEDICAL HISTORY HYPERLIPIDEMIA ASTHMA HX. OF CVA RIGHT BASAL GANGLIA 2010 DEPRESSION MIGRAINES ANXIETY HEMATURIA- WORKUP WITH DR. JARAMILLO IS NEGATIVE, ONLY NEEDS TO FOLLOW ANNUALLY WITH HIM TOOTH ABSCESS SALVATORE NOT COMPLIANT WITH CPAP ABSENCE SEIZURE CPAP MACHINE AT NIGHT ALLERGIES CODEINE PHOSPHATE (FOR ALLERGIES USE ONLY): HEADACHES: ALLERGY MORPHINE SULFATE: PERSONALITY CHANGES: ALLERGY ALL NSAID'S: NAUSEA/VOMITING: SIDE EFFECTS SURGICAL HISTORY TUBAL LIGATION 09/2005 CHOLECYSTECOMY TOTAL HYSTERECTOMY-IN SECTIONS D/T INTRAOPERATIVE BRADYCARDIA 09/2005 AND 09/2006 CARPAL TUNNEL RELEASE BILAT 1999 ALL TEETH PULLED 06/2015 FAMILY HISTORY FATHER: ALIVE, DIAGNOSED WITH CANCER MOTHER: ALIVE 63 YRS, MOTHER EARLY STAGE OF KIDNEY DISEASE. I KIDNEY REMOVED., DIAGNOSED WITH DIABETES SIBLINGS: DIAGNOSED WITH DIABETES MATERNAL GRAND MOTHER: DIAGNOSED WITH DIABETES MOM: RENAL DISEASE,. SOCIAL HISTORY GENERAL: TOBACCO USE ARE YOU A:CURRENT SMOKER HOW MANY CIGARETTES A DAY DO YOU SMOKE?11-20 HOW SOON AFTER YOU WAKE UP DO YOU SMOKE YOUR FIRST CIGARETTE?WITHIN 5 MIN HOW OFTEN DO YOU SMOKE CIGARETTES?EVERY DAY PATIENT COUNSELED ON THE DANGERS OF TOBACCO USE AND URGED TO QUIT:11/25/2016 ARE YOU INTERESTED IN QUITTING?THINKING ABOUT QUITTING PREVIOUS QUIT ATTEMPTS?YES, MORE THAN 6 MONTHS AGO. COUNSELED THE PATIENT ON SMOKING CESSATION, EDUCATION [id number]/11/2017 ALCOHOL SCREENING POINTS: 0, INTERPRETATION: NEGATIVE. RECREATIONAL DRUG USE DENIES. CAFFEINE >5/DAY. SEXUAL HX HAD SEX IN THE LAST 12 MONTHS (VAGINAL, ORAL, OR ANAL)?: YES, WITH: MEN ONLY, HAVE YOU EVER HAD AN STD?: NO. 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 DIET: REGULAR. EXERCISE: WALKS. MARITAL STATUS: .. OTHERS AT HOME: LIVES WITH FRIENDS. LATTER DAY NO SYNAGOGUE BELIEFS THAT WOULD IMPACT HEALTH CARE. LANGUAGE ALGERIAN. TRAVEL OUTSIDE US: NO TRAVEL OUTSIDE US IN PAST 21 DAYS. DOMESTIC VIOLENCE NONE. HOSPITALIZATION/MAJOR DIAGNOSTIC PROCEDURE OVARIAN TUBES 09/2005 CVA 11/2010 REVIEW OF SYSTEMS CONSTITUTIONAL: ANY CHANGE IN YOUR MEDICAL CONDITION? YES. PT SEEKING MEDICAL TX FOR CHRONIC HIP AND BACK PAIN . CHILLS NO . FEVER NO . INFECTION: DO YOU HAVE NEW INFECTIONS? NO . DO YOU HAVE HISTORY OF MRSA? NO . MUSCULOSKELETAL: ANY NEW PATTERNS OF PAIN OR NUMBNESS? YES. PT STATES AFTER CARPAL TUNNEL RELEASE (1999), PT HAD RELIEF X 1 YEAR. THEN CARPAL TUNNEL S/S STARTED COMING BACK. . SYTEMIC LUPUS NO . GASTROENTEROLOGY: ANY NEW CHANGE IN BOWEL CONTROL? YES, IBS . BARRETTS ESOPHAGUS NO . CIRRHOSIS NO . HEPATITIS NO . LIVER FAILURE NO . ACID REFLUX NO . UNEXPLAINED WEIGHT LOSS NO . GENITOURINARY: ANY NEW CHANGE IN BLADDER CONTROL? YES. ON OXYBUTYNIN FOR OVERACTIVE BLADDER . IS THERE A CHANCE YOU COULD BE ? NO . HEMATOLOGY/LYMPH: DO YOU TAKE ANY BLOOD THINNERS? (FOR EXAMPLE- COUMADIN, PLAVIX, AGGRENOX, PLATEL, PRADAXA, OR XARELTO) NO . WHEN WAS YOUR LAST DOSE? DATE: TIME: . LOW PLATELET COUNT NO . SICKLE CELL DISEASE NO . VON WILLIEBRANDS NO . FACTOR V LEIDEN NO . THALLASEMIA NO . ANEMIA NO . EASY BRUISING NO . NEUROLOGY: ANY NEW SEIZURES? "SILENT" SEIZURES. TO SEE NEUROLOGY. . HEAD INJURY NUMEROUS HEAD INJURIES . MYAASTHENIA GRAVIS NO . HEADACHE STARTED ON ZONISAMIDE FOR HEADCHES. . CARDIOLOGY: DO YOU HAVE A PACEMAKER OR DEFIBRILLATOR? NO . ANGINA NO . HEART ATTACK NO . HEART SURGERY NO . CONGESTIVE HEART FAILURE/FLUID OVERLOAD NO . STROKE SEEN BY DR RIVERA . CHEST PAIN OCCASIONAL . HIGH BLOOD PRESSURE NO . IRREGULAR HEART BEAT NO . RESPIRATORY: HAVE YOU BEEN SICK IN THE PAST WEEK? NO . FEVER NO . FLU LIKE SYMPTOMS? NO . CPAP YES, NON-COMPLIANT . BYPAP NO . ASTHMA YES . EMPHYSEMA NO . CHRONIC LUNG DISEASES NO . SHORTNESS OF BREATH ON EXERTION YES . COUGH NO . SNORING YES. SALVATORE . INTEGUMENTARY: DO YOU HAVE ANY RASHES OR OPEN SORES? NO . ALLERGIC/IMMUNO: ARE YOU ALLERGIC TO SHELLFISH OR IV DYE? NO . ANY NEW ALLERGIES? NO . PSYCHIATRIC: DO YOU HAVE THOUGHTS OF HURTING YOURSELF OR SOMEONE ELSE? NO . ARE YOU ABUSED, NEGLECTED, OR IN AN UNSAFE ENVIRONMENT? NO . ENDOCRINOLOGY: ARE YOU DIABETIC? NO . THYROID DISORDER NO . OTHER: DO YOU NEED ANY PRESCRIPTIONS? NO . IF YES, PLEASE LIST: ____ . ANY NEW PROBLEMS WITH YOUR MEDICATIONS? NO . WHEN DID YOU LAST EAT? ____ . WHEN DID YOU LAST DRINK? ____ . WHAT DID YOU LAST DRINK? ____ . NAME OF PERSON DRIVING YOU HOME? ____ . DO YOU HAVE ANY OTHER QUESTIONS OR CONCERNS NO . REVIEWED BY: PROVIDER: FABRICE ARNOLD . VITAL SIGNS WT 301 LBS, HT 63 IN, BMI 53.31 INDEX, BP 140/71 MM HG, HR 90 /MIN, RR 18 /MIN, TEMP 97.7 F, OXYGEN SAT % 96%, SAFE IN ENV? (Y/N) Y, NA INITIALS SC 10:42, REVIEWED BY: EM. EXAMINATION GENERAL EXAMINATION: PSYCHALERT , ORIENTED X 3 , APPROPRIATE MOOD AND AFFECT ,GOOD HISTORIAN. HEENT:NORMOCEPHALIC. NO LYMPHADENOPATHY, NO THYROMEGLY. LUNGS:CLEAR TO AUSCULTATION BILATERALLY, NO WHEEZES, RALES OR RHONCHI. HEART:NORMAL S1S2, NO MURMURS, CLICK OR RUBS. MUSCULOSKELETAL:POINT TENDERNESS OVER LUMBAR SPINOUS PROCESSES AND ACROSS THE LUMBOSACRAL AXIS. TENDERNESS WITH PALPATION OVER BILATERAL TRONCANTER REGIONS. CAN FLEX TO 30 DEGREES, EXTEND TO 5 DEGREES, AND NOT PAIN WITH ROTATION TO BOTH DIRECTIONS. SLR POSITIVE AT 15 DEGREES BILATERALLY. POSITVE PATRICKS TESTING BILATERALLY. . EXTREMITIES:NO CLUBBING, NO EDEMA. NEUROLOGIC EXAM:DECREASED SENSATION OVER RIGHT LE. DTRS 3+ BUE, 4+ RLE WITH CLONUS, 3+ LLE. ASSESSMENTS PRIMARY OSTEOARTHRITIS INVOLVING MULTIPLE JOINTS - M15.0 (PRIMARY) LUMBAGO WITH SCIATICA, RIGHT SIDE - M54.41 OTHER CHRONIC PAIN - G89.29 TREATMENT PRIMARY OSTEOARTHRITIS INVOLVING MULTIPLE JOINTS START VALIUM TABLET, 5 MG, 1 TABLET NEEDED, ORALLY, TAKE ON ARRIVAL TO TEST, 1 DOSE(S), 1, REFILLS 0 START BACLOFEN TABLET, 10 MG, 1 TABLET WITH FOOD OR MILK, ORALLY, THREE TIMES A DAY, 30 DAY(S), 90, REFILLS 1 LAB: [id number] LAB: LUPUS TYPE ANTICOAGULANT SCREE LAB: LYME DISEASE SCRN WITH CONFIRM LAB: RHEUMATOID FACTOR QUANT LAB: [facility] SPINE[facility] WITHOUT [id number],SUSAN M 11/25/2016 12:06:42 PM > POSSIBLE ANKYLOSIS SPONDYLITIS FABRICE DISLA 11/25/2016 12:06:42 PM > POSSIBLE ANKYLOSIS SPONDYLITIS FABRICE DISLA 11/25/2016 12:07:03 PM > RIGHT LE RADICULOPATHY NOTES: GET CPAP MACHINE WORKING AND USE NIGHTLY. WALK TOLERATED. CLINICAL NOTES: PT HAS HAD NUMEROUS TRIALS OF NSAIDS INCLUDING MELOXICAM, NAPROXYN AND IBUPROFEN. HAS NOT TOLERATED PHYSICAL THERAPY. X RAYS ARE SUSPICIOUS FOR BRIDGING . WILL REQUEST MRI OF LUMBAR SPINE WE WILL BE LOOKING TO DO THERAPEUTIC VS DIAGNOSTIC FACET BLOCK AND MAY NEED TO REFERR TO RHEUMATOLOGY. PREVENTIVE MEDICINE PAIN CLINIC TEACHING: PROCEDURE TEACHING PT ORIENTED TO PAIN MANAGEMENT AND PLAN OF CARE.. PROCEDURE CODES FA211 ESTABILISHED PATIENT [facility] CHARGE DISPOSITION & COMMUNICATION FOLLOW UP 1 MONTH (REASON: CHECK AUTH FOR MRI) ELECTRONICALLY SIGNED BY NAGA POMPA ON 12/06/2016 AT 05:56 PM EDT DISCLAIMER : THIS IS A VISIT SUMMARY EXTRACTED FROM THE [employer] CHART. IT IS NOT A COPY OF THE [employer] PROGRESS NOTE. MTDD
== END ==
LOC: M PAIN 11:20
PROVIDERS: ATTEND Nurse Practitioner Family
DX: G89.29 Other chronic pain (principal); M54.41 Lumbago with sciatica, right side; M25.559 Pain in unspecified hip; M15.0 Primary generalized (osteo)arthritis; E78.5 Hyperlipidemia, unspecified; J45.909 Unspecified asthma, uncomplicated; F32.9 Major depressive disorder, single episode, unspecified; G43.909 Migraine, unspecified, not intractable, without status migrainosus; F41.9 Anxiety disorder, unspecified; G47.33 Obstructive sleep apnea (adult) (pediatric); R56.9 Unspecified convulsions; F17.210 Nicotine dependence, cigarettes, uncomplicated; N32.81 Overactive bladder; Z79.82 Long term (current) use of aspirin; Z79.899 Other long term (current) drug therapy; Z88.5 Allergy status to narcotic agent; Z88.6 Allergy status to analgesic agent; Z87.820 Personal history of traumatic brain injury

== ENCOUNTER 2018-09-15 20:01 | Emergency (ER) | payer OTHER ==
[~2018-09-15] VITALS: Ht 160 cm; Wt 129.6 kg
[~2018-09-15 20:01] MED LIST changes: +EFFE75CA2 PO; -EFFE75CA75 PO; +OMEP40CA2 PO; -PROA1AER INH; +PROAAER10 INH
[2018-09-15] MEDS ORDERED: APAP500T10 PO (21:22)
[2018-09-15 21:23] VITALS: BP 115/57
[2018-09-15] MEDS ORDERED: ACETAMINOPHEN TAB 650MG DOSE (2X325MG) PO ONE (21:30)
--- NOTE | 2018-09-15 21:45 | REP ---
Clinical: Trauma/injury. Technique: AP, lateral, bilateral oblique views of the right foot. Findings: Hallux valgus deformity and age-related degenerative changes are suggested. No obvious acute fracture or dislocation identified. Impression: No obvious acute fracture or dislocation. Electronically Signed by Dalton Sue MD 09/15/2018 09:36 P
== END 2018-09-15 21:32 | disposition home or self-care (01) ==
LOC: M ED 20:01
DX: S90.31XA Contusion of right foot, initial encounter (principal); W03.XXXA Other fall on same level due to collision with another person, initial encounter; Y92.019 Unspecified place in single-family (private) house as the place of occurrence of the external cause

== ENCOUNTER 2018-09-21 05:50 | Day surgery (SDC) | payer OTHER ==
[~2018-09-21] VITALS: Ht 160 cm; Wt 128.8 kg
[~2018-09-21 05:50] MED LIST changes: +APAP500T10 PO
[2018-09-21] MEDS ORDERED: LR 1,000 ML IV ONE (06:00)
[2018-09-21] MEDS ORDERED: BUPIVACAINE HCL 0.25% 30 ML VIAL As Ordered ONE (07:14)
[2018-09-21] MEDS ORDERED: MIDAZOLAM INJ 2 MG/2 ML VIAL (J2250) As Ordered ONE (07:54)
[2018-09-21] MEDS ORDERED: PROPOFOL 200 MG/20 ML VIAL As Ordered ONE ×2 (07:54→08:07)
[2018-09-21] MEDS ORDERED: ONDANSETRON 4MG/2ML VIAL (J2405) As Ordered ONE (07:54)
[2018-09-21] MEDS ORDERED: KETOROLAC 60 MG/2 ML VIAL (J1885) As Ordered ONE (07:54)
[2018-09-21] MEDS ORDERED: METOCLOPRAMIDE INJ 10MG/2ML VIAL (J2765) As Ordered ONE (07:54)
[2018-09-21] MEDS ORDERED: fentaNYL 100 MCG/2 ML INJECTION (J3010) As Ordered ONE ×3 (07:54→10:35)
[2018-09-21] MEDS ORDERED: LIDOCAINE 2% INJ 100 MG/5 ML SDV (FOR ANES.) As Ordered ONE (07:54)
[2018-09-21] MEDS ORDERED: dexameTHASONE 4 MG/ML 1ML VIAL (J1100) As Ordered ONE (07:54)
[2018-09-21] MEDS ORDERED: ROCURONIUM BROMIDE 50 MG/5 ML VIAL As Ordered ONE ×2 (07:57→08:28)
[2018-09-21] MEDS ORDERED: PHENYLephrine HCL 500 MCG/5 ML (100MCG/ML) SYRINGE (J2370) As Ordered ONE (08:08)
[2018-09-21] MEDS ORDERED: DESFLURANE 240 ML INHALANT As Ordered ONE (08:11)
[2018-09-21] MEDS ORDERED: SEVOFLURANE INHAL SOLN 250 ML BTL As Ordered ONE (08:14)
[2018-09-21] MEDS ORDERED: SUGAMMADEX SODIUM 500 MG/5 ML VIAL (BRIDION) As Ordered ONE (08:16)
[2018-09-21] MEDS ORDERED: GLYCOPYRROLATE INJ 0.2 MG/ML 2 ML VIAL As Ordered ONE (10:06)
[2018-09-21] MEDS: fentaNYL 100 MCG/2 ML INJECTION (J3010) IV PRN ×4 (10:35→10:50)
[2018-09-21] MEDS: NORCO, ANEXSIA 5/325MG TABLET (HYDROcodone/ACETAMINOPHEN) PO PRN ×2 (10:40→11:15)
[2018-09-21] MEDS ORDERED: NORCO, ANEXSIA 5/325MG TABLET (HYDROcodone/ACETAMINOPHEN) As Ordered ONE (10:41)
[2018-09-21] MEDS ORDERED: ONDANSETRON 4MG/2ML VIAL (J2405) IV PRN (10:45)
[2018-09-21] MEDS ORDERED: LR 1,000 ML IV SCH ×2 (10:45)
--- NOTE | 2018-09-21 11:50 | REP ---
RIGHT FOOT SERIES: Limited study five views. HISTORY: Intraoperative filming. 39 seconds of fluoroscopy time is reported. FINDINGS: A sequence of five last image hold fluoroscopically obtained spot radiographs of the right foot document bunion repair 1st MTP joint. Electronically Signed by Luis Enrique Jorgensen MD 09/21/2018 01:38 P
[2018-09-21 12:30] VITALS: BP 124/59
--- NOTE | 2018-09-21 13:24 | RO ---
DATE OF PROCEDURE: PREOPERATIVE DIAGNOSIS: Right hallux valgus deformity. POSTOPERATIVE DIAGNOSIS: Right hallux valgus deformity. PROCEDURE: Right bunionectomy with scarf and Tripp osteotomies and lateral release, along with medial eminence resection. SURGEON: Alka Cooper MD WEIGHER AND CRUSHER: Chema Jimenez PA-C ANESTHESIA: General endotracheal anesthesia (GETA). ESTIMATED BLOOD LOSS (EBL): Less than 10 mL. COMPLICATIONS: None. IMPLANTS: Synthes 2.0 corticol screws times three and BME staple 9 x 7 times one. CONDITION: Stable to recovery. INDICATIONS: Coleen Hirsch is a 42-year-old female with a painful right hallux valgus deformity. She has failed conservative measures and presents for elective surgical treatment of her bunion. Risks and benefits of surgery were discussed with the patient in detail and include but are not limited to infection, damage to nerves and blood vessels, need for additional procedures, malunion or nonunion, continued pain and stiffness. DESCRIPTION OF PROCEDURE: The patient was met in the preoperative holding area, where her right lower extremity was marked as the correct operative site. She was taken to the operating room and placed in the supine position on the operating room table. She underwent general anesthesia. Laryngeal mask airway (LMA) anesthesia was initially placed, but the patient managed to spit this out, and then an endotracheal tube was placed by the anesthesiology team. Following this, a well-padded tourniquet was placed in the right upper thigh. A chlorhexidine scrub was done to the right lower extremity. A bump was placed under the hip. Right lower extremity was prepped and draped in normal sterile fashion. An official time-out was held, where the correct patient, operative site, and procedure were verified. At this point, an incision was marked out over the medial aspect of the great toe and 1st metatarsal, and a small incision was marked out in the 1st web space. The lower leg was exsanguinated, and the tourniquet was inflated to 250 mmHg. It was set for approximately 160 minutes. A lateral incision in the 1st web space was made with a #15 blade. Careful dissection to the sesamoid bone was performed. The interval between the sesamoid and 1st metatarsal was incised. A reduction maneuver was performed with the toe in plantar flexion and varus, and there was a satisfactory release of the toe. Following this, incision was made over the medial aspect of the great toe and 1st metatarsal. Care was taken to protect the dorsomedial cutaneous sensory nerve. The capsule was incised. The 1st metatarsal head was inspected. There was very minimal arthritis. The medial eminence was resected using the 38-mm saw. Osteotomy was then marked out with two 0.062 K wires. When I was happy with the pins, resection was made with the 38 and 39 saw blade. I was able to easily translocate the osteotomy and gained good correction. This was pinned in place with a 0.062 wire. Three 2.0-mm screws were placed across the osteotomy site. One into the metatarsal head and the other two in lag screw technique. At this point, a decision was made to perform a small Tripp osteotomy. A pin was placed across the proximal phalanx. Osteotomy location was determined to be correct, and a small closing wedge osteotomy was performed. A 9 x 7 BME staple was placed here. At this point, a small area of the capsule was excised, and this was plicated using 2-0 FiberWire in a horizontal mattress fashion. The wounds were copiously irrigated. Subcutaneous tissues were closed using 3-0 Vicryl, and the skin was closed using 3-0 nylon. A well-padded dressing was placed. The patient was placed into a well-padded splint. She was extubated and transferred to the recovery room in stable condition. PLAN: The patient will be nonweightbearing on the right lower extremity. She will be on aspirin 81 twice a day for deep venous thrombosis (DVT) prophylaxis. She will keep her leg elevated for the next 2 weeks. We will see her back for suture removal at this time.
[2018-09-22] MEDS ORDERED: OXYC-517 (14:44)
[2018-09-22] MEDS ORDERED: TESS100C PO (17:31)
== END 2018-09-21 12:45 | disposition home or self-care (01) ==
LOC: M SDC 05:50
PROVIDERS: ATTEND Orthopaedic Surgery
DX: M20.11 Hallux valgus (acquired), right foot (principal); E78.5 Hyperlipidemia, unspecified; K58.8 Other irritable bowel syndrome; K21.9 Gastro-esophageal reflux disease without esophagitis; F41.9 Anxiety disorder, unspecified; F43.10 Post-traumatic stress disorder, unspecified; Z86.73 Personal history of transient ischemic attack (TIA), and cerebral infarction without residual deficits; Z79.899 Other long term (current) drug therapy; Z79.82 Long term (current) use of aspirin; Z79.51 Long term (current) use of inhaled steroids; G47.30 Sleep apnea, unspecified; F17.210 Nicotine dependence, cigarettes, uncomplicated; Z88.8 Allergy status to other drugs, medicaments and biological substances
CPT/HCPCS: 28299; 73630; C1713; J0690; J1100; J1885; J2250; J2370; J2405; J2765; J3010

== ENCOUNTER 2018-09-22 14:36 | Emergency (ER) | payer OTHER ==
[~2018-09-22] VITALS: Ht 160 cm; Wt 129.6 kg
[2018-09-22] MEDS ORDERED: OXYC-517 (14:44)
--- NOTE | 2018-09-22 17:30 | REP ---
PA and lateral chest: Comparison is 11/03/2016. The lung godfrey are clear. The cardiac size is normal. The tino, mediastinum, and skeletal structures are unremarkable. There is no pneumomediastinum or pneumothorax. No pleural fluid collection. Impression: Negative PA and lateral chest. There is no interval change. Electronically Signed by Cosme Seals MD 09/22/2018 05:21 P
[2018-09-22] MEDS ORDERED: TESS100C PO (17:31)
[2018-09-22 17:54] VITALS: BP 129/80
== END 2018-09-22 18:01 | disposition home or self-care (01) ==
LOC: M ED 14:36
DX: R04.2 Hemoptysis (principal); J45.909 Unspecified asthma, uncomplicated; K21.9 Gastro-esophageal reflux disease without esophagitis; E78.00 Pure hypercholesterolemia, unspecified; M54.9 Dorsalgia, unspecified; F41.9 Anxiety disorder, unspecified; F32.9 Major depressive disorder, single episode, unspecified; G51.0 Bell's palsy; Z72.0 Tobacco use; Z79.82 Long term (current) use of aspirin; Z79.899 Other long term (current) drug therapy; Z88.5 Allergy status to narcotic agent; Z88.6 Allergy status to analgesic agent; Z88.8 Allergy status to other drugs, medicaments and biological substances

== ENCOUNTER 2018-10-13 14:13 | Emergency (ER) | payer OTHER ==
[~2018-10-13] VITALS: Ht 160 cm; Wt 124.7 kg
[~2018-10-13 14:13] MED LIST changes: -/ESOM40CA OR; -ASPI1TAB PO; +ASPI81TA26 PO; +NEXI1CAP3 OR; +OXYC-517; +TESS100C PO
[2018-10-13 14:14] VITALS: BP 122/68
[2018-10-13] MEDS ORDERED: REGL10TA6 PO (15:39)
--- NOTE | 2018-10-13 15:53 | REP ---
RIGHT SHOULDER, THREE VIEWS: There is no evidence of an acute fracture, dislocation or intrinsic bone disease. IMPRESSION: No fracture or dislocation. Electronically Signed by Cosme Abernathy MD 10/13/2018 04:02 P
--- NOTE | 2018-10-13 15:54 | REP ---
RIGHT HUMERUS, TWO VIEWS: There is no evidence of an acute fracture, dislocation or intrinsic bone disease. IMPRESSION: No fracture or dislocation. Electronically Signed by Cosme Abernathy MD 10/13/2018 04:02 P
== END 2018-10-13 16:03 | disposition home or self-care (01) ==
LOC: M ED 14:13
DX: S40.011A Contusion of right shoulder, initial encounter (principal); S46.911A Strain of unspecified muscle, fascia and tendon at shoulder and upper arm level, right arm, initial encounter; W19.XXXA Unspecified fall, initial encounter; Y92.410 Unspecified street and highway as the place of occurrence of the external cause; J45.909 Unspecified asthma, uncomplicated; K21.9 Gastro-esophageal reflux disease without esophagitis; F17.200 Nicotine dependence, unspecified, uncomplicated; Z82.49 Family history of ischemic heart disease and other diseases of the circulatory system; Z88.8 Allergy status to other drugs, medicaments and biological substances; Z88.5 Allergy status to narcotic agent

== ENCOUNTER 2024-05-05 16:38 | Emergency (ER) | payer OTHER, SELFPAY ==
[~2024-05-05] VITALS: Ht 160 cm; Wt 107.0 kg
[~2024-05-05 16:38] MED LIST changes: -OMEP40CA2 PO; +OMEP40CA4 PO; +REGL10TA6 PO; -SIMV40TA2 PO; +SIMV40TA20 PO; -ZONI100C2 PO; +ZONI100C67 PO
[2024-05-05 16:41] VITALS: BP 136/76; TEMP 97.6; O2SAT 99
[2024-05-05] MEDS ORDERED: SPIR1CAP INH (16:55)
[2024-05-05] MEDS: ACETAMINOPHEN 500 MG TAB PO ONE (19:20)
[2024-05-05] MEDS: GABAPENTIN 300 MG CAP PO ONE (19:20)
== END 2024-05-05 19:48 | disposition home or self-care (01) ==
LOC: M ED 16:38
DX: M25.562 Pain in left knee (principal); E78.5 Hyperlipidemia, unspecified; J44.9 Chronic obstructive pulmonary disease, unspecified; G40.909 Epilepsy, unspecified, not intractable, without status epilepticus; F32.A Depression, unspecified; F17.210 Nicotine dependence, cigarettes, uncomplicated; Z88.5 Allergy status to narcotic agent; Z88.8 Allergy status to other drugs, medicaments and biological substances; Z79.1 Long term (current) use of non-steroidal anti-inflammatories (NSAID); Z79.51 Long term (current) use of inhaled steroids; Z79.899 Other long term (current) drug therapy

== ENCOUNTER 2024-09-04 14:11 | Emergency (ER) | payer MEDICAID, SELFPAY ==
[~2024-09-04] VITALS: Ht 160 cm; Wt 108.4 kg
[~2024-09-04 14:11] MED LIST changes: +SPIR1CAP INH
[2024-09-04 14:24] VITALS: BP 132/81; TEMP 98.3; O2SAT 97
[2024-09-04] MEDS: PERCOCET 5MG/325MG TAB PO ONE (14:50)
[2024-09-04] MEDS ORDERED: PERC5TAB12 PO (16:35)
== END 2024-09-04 17:22 | disposition home or self-care (01) ==
LOC: M ED 14:11 → EDBD 14:11 → M ED 17:22
DX: S70.01XA Contusion of right hip, initial encounter (principal); S80.11XA Contusion of right lower leg, initial encounter; S30.0XXA Contusion of lower back and pelvis, initial encounter; Y92.019 Unspecified place in single-family (private) house as the place of occurrence of the external cause; Y93.9 Activity, unspecified; Y99.9 Unspecified external cause status; J44.9 Chronic obstructive pulmonary disease, unspecified; K21.9 Gastro-esophageal reflux disease without esophagitis; E78.5 Hyperlipidemia, unspecified; Z88.5 Allergy status to narcotic agent; Z88.6 Allergy status to analgesic agent; Z79.1 Long term (current) use of non-steroidal anti-inflammatories (NSAID); Z79.51 Long term (current) use of inhaled steroids; Z79.899 Other long term (current) drug therapy

== ENCOUNTER 2025-03-20 04:58 | Emergency (ER) | payer MEDICAID ==
[~2025-03-20] VITALS: Ht 160 cm; Wt 136.4 kg
[~2025-03-20 04:58] MED LIST changes: +PERC5TAB12 PO
[2025-03-20 05:01] VITALS: BP 130/60; TEMP 98.3; O2SAT 96
== END 2025-03-20 07:45 | disposition left against medical advice (07) ==
LOC: M ED 04:58
DX: Z53.21 Procedure and treatment not carried out due to patient leaving prior to being seen by health care provider (principal)

== ENCOUNTER 2025-03-21 21:34 | Emergency (ER) | payer MEDICAID ==
[~2025-03-21] VITALS: Ht 160 cm; Wt 143.2 kg
[2025-03-22 03:06] LABS: BASO # 0.0 10^3/uL (0.0-0.2); BASO % 0.3 % (0.0-1.0); EOS # 0.2 10^3/uL (0.0-0.5); EOS % 2.2 % (0.0-3.0); LYMPH # 3.5 10^3/uL (1.5-5.0); LYMPH % 34.2 % (24.0-44.0); MONO # 0.6 10^3/uL (0.0-0.8); MONO % 5.9 % (2.0-8.0); NEUTROPHILS # 5.8 10^3/uL (1.5-8.5); NEUTROPHILS % 57.0 % (36.0-66.0); PLATELET COUNT, AUTOMATED 253 10^3/uL (150-450)
[2025-03-22 03:37] LABS: ALT/SGPT 16 U/L (7.0-40); AST/SGOT 29 U/L (<34); CALCIUM LEVEL 9.5 MG/DL (8.5-10.1); CARBON DIOXIDE LEVEL 27 MMOL/L (20-31); CHLORIDE LEVEL 107 MMOL/L (98-107); CK-MB VALUE MASS 8.5 NG/ML (<3.6); CREATININE FOR GFR 0.55 MG/DL (0.55-1.30); GLOMERULAR FILTRATION RATE > 90.0 (>51); POTASSIUM SERUM 3.7 MMOL/L (3.5-5.1); SODIUM LEVEL 144 MMOL/L (136-145)
[2025-03-22 03:38] LABS: CPK CREATINE PHOSPHOKINASE 533 U/L (34-145); MB/CK RELATIVE INDEX 1.59 (< OR =4)
[2025-03-22] MEDS ORDERED: ISOVUE-370 76% 100 ML VIAL As Ordered ONE (03:48)
[2025-03-22] MEDS: KETOROLAC 30 MG/ML 1 ML VIAL IV PRN (04:50)
[2025-03-22 05:14] LABS: CK-MB VALUE MASS 8.1 NG/ML (<3.6)
[2025-03-22 05:24] LABS: CPK CREATINE PHOSPHOKINASE 468.0 U/L (34-145); MB/CK RELATIVE INDEX 1.73 (< OR =4)
[2025-03-22 06:14] VITALS: BP 127/58
[2025-03-22] MEDS: FUROSEMIDE 20 MG/2 ML VIAL IV ONE (06:14)
[2025-03-22] MEDS ORDERED: FURO20TA2 PO (06:21)
[2025-03-22 06:36] VITALS: BP 132/61
[2025-03-22 06:37] VITALS: TEMP 97.7; O2SAT 98
== END 2025-03-22 07:01 | disposition home or self-care (01) ==
LOC: M ED 21:34
DX: I87.2 Venous insufficiency (chronic) (peripheral) (principal); I45.10 Unspecified right bundle-branch block; E78.5 Hyperlipidemia, unspecified; J45.909 Unspecified asthma, uncomplicated; G47.33 Obstructive sleep apnea (adult) (pediatric); F17.210 Nicotine dependence, cigarettes, uncomplicated; Z86.73 Personal history of transient ischemic attack (TIA), and cerebral infarction without residual deficits; Z88.5 Allergy status to narcotic agent; Z88.6 Allergy status to analgesic agent; Z79.1 Long term (current) use of non-steroidal anti-inflammatories (NSAID); Z79.51 Long term (current) use of inhaled steroids; Z79.899 Other long term (current) drug therapy
CPT/HCPCS: 71275; 80047; 80053; 82550; 82553; 83880; 84484; 85025; 93005; 93041; 93970; 94760; 96374; 96375; 99285; J1885; J1938; Q9967